=== PATIENT | female | born 1960 | race Caucasian/White ===

== ENCOUNTER 2016-07-31 20:10 | Emergency (ER) | payer MEDICARE ==
[2016-07-31 20:19] VITALS: TEMP 98; BMI 36.3
--- NOTE | 2016-07-31 20:35 | EDPRACDOC ---
ED Hip Problem HPI - General Information Chief Complaint: Fall Stated Complaint: FALL WITH RIGHT HIP PAIN Time Seen by Provider: 07/31/16 20:22 Information Source: Patient Mode of Arrival: Car Home Medications: Home Medications Diazepam [Valium] 5 mg PO QID 11/08/13 Duloxetine [Cymbalta] 60 mg PO DAILY 11/08/13 Lisinopril 20 mg PO DAILY 11/08/13 Ranitidine HCl [Zantac] 150 mg PO BID #14 tablet 08/31/14 Lamotrigine [Lamictal] 150 mg PO QAM 11/04/15 Meloxicam 15 mg PO DAILY 11/04/15 Trazodone HCl 100 mg PO QHS 11/04/15 Prednisone [Deltasone, Orasone] 20 mg PO DAILY #20 tab 06/16/16 Promethazine Dextromethorphan [Phenergan DM] 5 ml PO Q4H PRN #120 ml 06/16/16 Hydrocodone Bit/Acetaminophen [Compton 5-325 Tablet] 1 each PO Q4H #15 tab Meloxicam [Mobic] 7.5 mg PO BID #20 tab 07/31/16 Allergies/Adverse Reactions: Allergies Allergy/AdvReac Type Severity Reaction Status Date / Time aripiprazole [From Abilify] Allergy Mild RASH Verified 07/31/16 20:19 morphine Allergy Mild Rash-Locali Verified 07/31/16 20:19 zed metronidazole [From Flagyl] Allergy Unknown Verified 07/31/16 20:19 Penicillins Allergy Unknown Verified 07/31/16 20:19 contrast dye Allergy Edema-Gener Uncoded 07/31/16 20:19 alized - History of Present Illness Onset: 1 WEEK HPI: PT PRESENTS TODAY WITH RIGHT HIP PAIN AFTER MECHANICAL FALL 1 WEEK AGO. STATES SHE STANDS ON HER HIP FOR LONG PERIODS OF TIME, THE PAIN INCREASES. PT AMBULATES WITH MILD PAIN. NO OTHER INJURY REPORTED. Hip Problem Location: Reports: Right, Lateral Mechanism: Reports: Blunt Trauma Circumstances: Reports: Fall Relevant History: Reports: None Able to Bear Weight: Limited Pain Severity: Moderate Associated Signs & Symptoms: Reports: None ED Past Medical History - History Reviewed Yes Nurses notes reviewed and agree except as marked - Patient Medical History Cardiac History: Reports: Hypertension Musculoskeletal History: Reports: Arthritis (generalized) Psychological History: Reports: Anxiety, Bipolar Disorder. Denies: Depression Systemic History: Denies: Cancer Surgical History: Reports: Tonsillectomy/Adnoidectomy - Family Medical History Reports: Cancer (COLON) - Social Medical History Smoking Status: Never smoker EDM Review of Systems - Review of Systems ROS Negative Except as Marked: Yes All systems reviewed and were negative except as marked Constitutional: No Symptoms Reported Respiratory: No Symptoms Reported Cardiovascular: No Symptoms Reported Gastrointestinal: No Symptoms Reported Genitourinary: No Symptoms Reported Neurological: No Symptoms Reported Musculoskeletal: Hip Integumentary: No Symptoms Reported - Physical Exam Constitutional: Alert (Awake), No apparent distress Oriented to: Time, Person, Place Last recorded Vital Signs: Last Vital Signs Temp 98 F 07/31/16 20:14 Pulse 104 07/31/16 20:14 Resp 20 07/31/16 20:14 BP 167/84 07/31/16 20:14 Pulse Ox 97 07/31/16 20:14 Oxygen Pulse Oxygen Saturation 97 O2 Device Room Air Oxygen Flow Rate Fraction of Inspired Oxygen ( FIO2) - HEENT Head: Normal Eye Exam: Normal Neck: Normal, Denies Pain, Midline - Respiratory/Cardiovascular Respiratory: Normal - CTA Cardiovascular: Normal - GI Palpation: Normal Tenderness: Non tender - Musculoskeletal Back: Normal Extremities: Other (PT STATES TTP TO RIGHT LATERAL HIP W/OUT APPARENT DEFORMITY/ BRUISING NOTED; NO SHORTENING NOTED; NO ROTATION NOTED; PEDAL PULSES NORMAL) - Integumentary Skin: Normal Lymphatics: Normal - Neurologic Cerebellar: Normal Mood Description: Normal Thought: Coherent Perception: Normal ED Hip Problem Physical Exam - Musculoskeletal Hip: Moderate tenderness Hip Deformity: Normal Pelvis: Normal Thigh: Normal Back: Normal Distal Function/Circulation: Normal Decision Time to Discharge: 20:35 - Departure Disposition: Home Condition: Good Final Diagnosis: Contusion, hip Qualifiers: Encounter type: initial encounter Laterality: right Qualified Code(s): S70.01XA - Contusion of right hip, initial encounter Instructions: RICE Therapy (ED) Education/Counseling Given To: Patient Education/Counseling Given Regarding: Diagnosis, Treatment, Follow Up Referrals: Yash Isaac DDS [Primary Care Provider] - One Week Prescriptions: New Hydrocodone Bit/Acetaminophen [Compton 5-325 Tablet] 1 each PO Q4H #15 tab Meloxicam [Mobic] 7.5 mg PO BID #20 tab No Action Diazepam [Valium] 5 mg PO QID Duloxetine [Cymbalta] 60 mg PO DAILY Lisinopril 20 mg PO DAILY Ranitidine HCl [Zantac] 150 mg PO BID #14 tablet Trazodone HCl 100 mg PO QHS Meloxicam 15 mg PO DAILY Lamotrigine [Lamictal] 150 mg PO QAM Prednisone [Deltasone, Orasone] 20 mg PO DAILY #20 tab Promethazine Dextromethorphan [Phenergan DM] 5 ml PO Q4H PRN #120 ml PRN Reason: Cough Additional Instructions: TAKE MEDICATIONS WITH FOOD. IF SYMPTOMS PERSIST, FOLLOW UP WITH PCP FOR POSSIBLE NEED OF OUTPATIENT MRI.
--- NOTE | 2016-07-31 20:57 | DIRPT ---
CLINICAL DATA: 56-year-old female with acute right hip pain following fall 6 days ago. Initial encounter. EXAM: RIGHT HIP (WITH PELVIS) 2-3 VIEWS COMPARISON: None. FINDINGS: There is no evidence of hip fracture or dislocation. There is no evidence of arthropathy or other focal bone abnormality. IMPRESSION: Negative. Electronically Signed By: Jesus Mcguire M.D. On: 07/31/2016 20:55
[2016-07-31 21:16] VITALS: BP 138/60; PULSE 78
== END 2016-07-31 21:16 | disposition home or self-care (01) ==
LOC: EDMC 20:10
DX: S70.01XA Contusion of right hip, initial encounter (principal); W19.XXXA Unspecified fall, initial encounter; Y93.9 Activity, unspecified
CPT/HCPCS: 73502; 99282